=== PATIENT | male | born 1985 | race African-American/Black ===

== ENCOUNTER 2019-06-02 08:41 | Emergency (ER) | payer MEDICAID ==
[~2019-06-02] VITALS: Ht 172.7 cm; Wt 58.0 kg
[2019-06-02 08:51] VITALS: BP 112/60
== END 2019-06-02 10:50 | disposition left against medical advice (07) ==
LOC: ER 08:57
DX: D17.9 Benign lipomatous neoplasm, unspecified (principal); F17.200 Nicotine dependence, unspecified, uncomplicated; Z88.0 Allergy status to penicillin
CPT/HCPCS: 99281

== ENCOUNTER 2020-08-24 08:48 | Emergency (ER) | payer MEDICAID ==
[~2020-08-24] VITALS: Ht 177.8 cm; Wt 61.0 kg
[2020-08-24] MEDS ORDERED: TERB250T51 MT (09:20)
[2020-08-24 09:50] VITALS: BP 132/70
== END 2020-08-24 09:50 | disposition home or self-care (01) ==
LOC: ER 08:48
DX: B35.1 Tinea unguium (principal); R03.0 Elevated blood-pressure reading, without diagnosis of hypertension; F12.90 Cannabis use, unspecified, uncomplicated
CPT/HCPCS: 99282